=== PATIENT | male | born 1980 | race Caucasian/White ===

== ENCOUNTER 2016-11-10 22:40 | Emergency (ER) | payer MEDICAID ==
[~2016-11-10] VITALS: Ht 177.8 cm; Wt 140.5 kg
[2016-11-10 22:45] VITALS: Ht 177.8 cm; Wt 140.5 kg
[2016-11-10] MEDS ORDERED: AMOX1TAB10 PO (23:36)
[2016-11-10] MEDS ORDERED: LORA10CA PO (23:36)
[2016-11-10 23:54] VITALS: BP 161/97; PULSE 91; RESP 20; TEMP 98
--- NOTE | 2016-11-11 02:22 | ERD ---
ER Documentation Chief Complaint Date/Time DATE: 11/11/16 TIME: 02:21 Chief Complaint right ear pain x days HPI This patient is a 36-year-old male presenting to the emergency department for right ear pain for the past week which is intermittent and mild in severity currently. ROS All systems reviewed and are negative except as per history of present illness. Medications Home Meds Active Scripts Loratadine* (Claritin*) 10 Mg Capsule, 10 MG PO DAILY, #30 CAP Prov:CEM HOLDER PA-C 11/10/16 Amoxicillin/Potassium Clav (Amox-Clav 875-125 mg Tablet) 875-125 mg Tab, 1 TAB PO BID for 10 Days, #20 TAB Prov:CEM HOLDER PA-C 11/10/16 Allergies Allergies: Coded Allergies: No Known Allergy (Unverified , 11/10/16) PMhx/Soc Medical and Surgical Hx: pt denies Medical Hx, pt denies Surgical Hx Hx Alcohol Use: No Hx Substance Use: No Hx Tobacco Use: No Smoking Status: Never smoker FmHx Noncontributory for chief complaint Physical Exam Vitals Vital Signs Date Time Temp Pulse Resp B/P Pulse Ox O2 Delivery O2 Flow Rate FiO2 11/10/16 23:54 98.0 91 20 161/97 99 Room Air 11/10/16 22:45 98.5 106 20 179/87 100 Physical Exam Const: Nontoxic, well-appearing male. Head: Atraumatic Eyes: Normal Conjunctiva ENT: Normal External Ears, Nose and Mouth. There is erythema to bilateral tympanic membranes but no bulging. Neck: Full range of motion..~ No meningismus. Resp: Clear to auscultation bilaterally Cardio: Regular rate and rhythm, no murmurs Abd: Soft, non tender, non distended. Normal bowel sounds Skin: No petechiae or rashes Back: No midline or flank tenderness Ext: No cyanosis, or edema Neur: Awake and alert Psych: Normal Mood and Affect Procedures/MDM 36-year-old male presents to the emergency department with right ear pain. On exam blood pressure was elevated at 179/87. Patient's blood pressure was elevated (>120/80) but appears stable without evidence of hypertension emergency or urgency. The patient was counseled about the risks of hypertension and urged to pursue outpatient monitoring and therapy within a week with their primary care physician. History and clinical examination is concerning for bilateral otitis media. The patient is stable for outpatient management with a prescription for Augmentin and loratadine. Questions and concerns were addressed. Close follow-up with primary care physician advised. Strict ER return precautions discussed. Departure Diagnosis: Primary Impression: Otitis media Otitis media type: unspecified Laterality: bilateral Chronicity: unspecified Qualified Code: H66.93 - Bilateral otitis media, unspecified chronicity, unspecified otitis media type Condition: Fair Patient Instructions: Otitis Media, Abx Tx (Adult) Additional Instructions: No mas mejor en 2-3 [place], regresar. Mas peor en 24 horas, regresear rapidamente. Ir a doctor primario in 5-7 [place]. Usar instrucciones cuando reji medicamento. CEM HOLDER PA-C Nov 11, 2016 02:22
== END 2016-11-10 23:54 | disposition home or self-care (01) ==
LOC: FTE 22:40
DX: H66.93 Otitis media, unspecified, bilateral (principal)
CPT/HCPCS: 99283

== ENCOUNTER 2018-12-30 11:08 | Emergency (ER) | payer MEDICAID ==
[~2018-12-30] VITALS: Ht 170.2 cm; Wt 147.0 kg
[~2018-12-30 11:08] MED LIST: AMOX1TAB10 PO; LORA10CA PO; [UNRECOGNIZED DRUG - CODE] IV
[2018-12-30 11:13] VITALS: Ht 170.2 cm; Wt 147.0 kg
[2018-12-30] MEDS ORDERED: SODIUM CHLORIDE 0.9% 1L BAG IV* STA (12:27)
[2018-12-30] MEDS ORDERED: CEFEPIME 2GM/50 ML (PMX) 50 ML IVPB STA (12:27)
[2018-12-30] MEDS ORDERED: VANCOMYCIN 1 GM (PMX) 250 ML IVPB ONE (12:30)
[2018-12-30 16:09] VITALS: BP 152/78; PULSE 78; RESP 18
--- NOTE | 2018-12-30 16:21 | ERD ---
ER Documentation Chief Complaint Chief Complaint RIGHT KNEE SURGERY JULY AT [facility], ON IV ANTIOTICS X 2 WEEKS, NO IMP HPI 38-year-old gentleman who presents to the emergency room with persistent drainage from the right knee. Patient had knee surgery on August 19 of this year at [facility] by a doctor Jaswinder (esvin). The patient has now been on 2 different antibiotics for persistent infection of this knee. The patient was recently transitioned through a PICC line to oxacillin. The patient states that he had a follow-up with primary care physician several days ago who stated that they would like to see another week on his antibiotics. He does state that the redness around his knee is better but the patient is still having copious and persistent drainage from the knee itself. Patient describes moderate pain and difficulty ambulating because of the pain. He denies any fevers or chills. Patient is concerned because the persistence of symptoms therefore presents to the emergency room. ROS All systems reviewed and are negative except as per history of present illness. Medications Home Meds Reported Medications Oxacillin Sodium/Dextrose,Iso (Oxacillin 2 gm/ 50 ml Inj) 2 Gm/50 Ml Froz.piggy, 48 ML IV Q4H 12/30/18 Discontinued Scripts Loratadine* (Claritin*) 10 Mg Capsule, 10 MG PO DAILY, #30 CAP Prov:CEM HOLDER PA-C 11/10/16 Amoxicillin/Potassium Clav (Amox-Clav 875-125 mg Tablet) 875-125 mg Tab, 1 TAB PO BID for 10 Days, #20 TAB Prov:CEM HOLDER PA-C 11/10/16 Allergies Allergies: Coded Allergies: No Known Allergy (Unverified , 12/30/18) PMhx/Soc History of Surgery: Yes (RIGHT KNEE) Anesthesia Reaction: No Hx Neurological Disorder: No Hx Respiratory Disorders: No Hx Cardiac Disorders: Yes (HTN) Hx Psychiatric Problems: No Hx Miscellaneous Medical Probl: No Hx Alcohol Use: No Hx Substance Use: No Hx Tobacco Use: No Smoking Status: Never smoker FmHx Family History: No diabetes Physical Exam Vitals Vital Signs Date Temp Pulse Resp B/P (MAP) Pulse Ox O2 O2 Flow FiO2 Time Delivery Rate 12/30/18 78 18 152/78 100 Room Air 16:09 (102) 12/30/18 98.3 80 20 151/91 100 Room Air 13:21 (111) 12/30/18 98.1 89 18 178/78 99 11:13 (111) Physical Exam General: Well developed, well nourished, no acute distress Head: Normocephalic, atraumatic. Eyes: Pupils equally reactive, EOM intact ENT: Moist mucous membranes Neck: Supple, no lymphadenopathy Respiratory: Lungs clear bilaterally, no distress Cardiovascular: RRR, no murmurs, rubs, or gallops Abdominal: Soft, non-tender, non-distended, no peritoneal signs : Deferred MSK: Significant purulent drainage from the anterior portion of the right knee with limited range of motion secondary to pain and effusion. Surrounding erythema and warmth is noted to the knee. Strong pulses distally. Good capillary refill. Neurologic: Alert and oriented, moving all extremities, normal speech, no focal weakness, no cerebellar signs Skin: No rash Psych: Normal mood Result Diagram: 12/30/18 1241 12/30/18 1241 Results 24 hrs Laboratory Tests Test 12/30/18 12:41 12/30/18 12:49 White Blood Count 6.3 10^3/ul Red Blood Count 4.60 10^6/ul Hemoglobin 14.1 g/dl Hematocrit 41.5 % Mean Corpuscular Volume 90.2 fl Mean Corpuscular Hemoglobin 30.7 pg Mean Corpuscular Hemoglobin Concent 34.0 g/dl Red Cell Distribution Width 12.5 % Platelet Count 531 10^3/UL Mean Platelet Volume 9.1 fl Immature Granulocytes % 0.300 % Neutrophils % 61.5 % Lymphocytes % 29.7 % Monocytes % 6.6 % Eosinophils % 1.4 % Basophils % 0.5 % Nucleated Red Blood Cells % 0.0 /100WBC Immature Granulocytes # 0.020 10^3/ul Neutrophils # 3.9 10^3/ul Lymphocytes # 1.9 10^3/ul Monocytes # 0.4 10^3/ul Eosinophils # 0.1 10^3/ul Basophils # 0.0 10^3/ul Nucleated Red Blood Cells # 0.0 10^3/ul Erythrocyte Sedimentation Rate 53.0 mm/Hr Prothrombin Time 12.9 Sec Prothrombin Time Ratio 1.0 INR International Normalized Ratio 0.96 Activated Partial Thromboplast Time 27.6 Sec Sodium Level 140 mmol/L Potassium Level 3.8 mmol/L Chloride Level 107 mmol/L Carbon Dioxide Level 26 mmol/L Anion Gap 7 Blood Urea Nitrogen 9 mg/dl Creatinine 0.70 mg/dl Est Glomerular Filtrat Rate mL/min > 60 mL/min Glucose Level 117 mg/dl Calcium Level 9.1 mg/dl Total Bilirubin 0.3 mg/dl Direct Bilirubin 0.00 mg/dl Indirect Bilirubin 0.3 mg/dl Aspartate Amino Transf (AST/SGOT) 25 IU/L Alanine Aminotransferase (ALT/SGPT) 26 IU/L Alkaline Phosphatase 94 IU/L C-Reactive Protein 6.1 mg/dl Total Protein 7.1 g/dl Albumin 3.7 g/dl Globulin 3.40 g/dl Albumin/Globulin Ratio 1.08 POC Venous Lactate 1.0 mmol/L Current Medications Medications Dose Sig/Krista Start Time Status Last (Trade) Ordered Route PRN Stop Time Admin Dose Reason Admin Sodium 1,980 ml BOLUS OVER 2 12/30/18 DC 12/30/18 Chloride HOURS STAT 12:27 12/30/18 12:43 (NS) IV* 12:30 Cefepime HCl 50 ml @ ONCE STAT 12/30/18 DC 12/30/18 100 mls/hr IVPB 12:27 12/30/18 12:42 12:56 Vancomycin 250 ml @ ONCE ONCE 12/30/18 DC 12/30/18 HCl 125 mls/hr IVPB 12:30 12/30/18 12:43 14:29 Procedures/MDM EKG, MONITORS, & DIAGNOSTIC IMAGING: X-ray right knee: IMPRESSION: Marked soft tissue swelling in the right anterior knee with scattered air bubbles, suspicious for an infectious process. Follow-up CT with contrast is recommended. LAB INTERPRETATION: I reviewed the laboratory testing and it shows elevated ESR and CRP MEDICAL DECISION MAKING: The patient has persistent drainage from his right knee consistent with a septic arthritis that is failing outpatient IV antibiotic therapy. This is now the patient's second antibiotic and has persistent drainage that is purulent from the right knee. Patient likely requires washout of the joint. Given this is a subacute issue the patient does not likely require emergency washout but prompt evaluation is certainly necessary. I will broaden the patient's antibiotics, check laboratory testing and screen for more serious infection and bacteremia. The patient needs to likely follow-up with his surgeon at [facility]. A phone call to [facility] was placed, they do not have any beds to accept this patient. ER COURSE: * The patient's laboratory testing is reassuring but the patient's ESR and CRP are elevated as expected. * Unfortunately [facility] does not have any beds at [facility]. The patient cannot be transferred * On-call orthopedic surgeon Dr. Lopez recommends transfer to [facility]. He cannot accept the case given the patient has a subacute process and has been seen by prior surgeon. * After prolonged and multiple attempts to try and transfer this patient to admit the patient I am unsuccessful. The patient wishes to go home. He is advised that he needs prompt follow-up with his surgeon. Given the subacute nature the patient may tolerate outpatient care. He is currently receiving IV antibiotics. Return precautions were discussed and understood. The patient was advised that he absolutely needs to see his primary surgeon as soon as possible. Patient has chose to leave the emergency room rather than be transferred from the emergency room. CONSULTATION: Orthopedic surgeon as documented above DISPOSITION PLAN: The patient does not have an identifiable emergent medical condition that w arrants inpatient hospitalization at this time. The patient is deemed safe for discharge with outpatient follow-up. We discussed follow up with the patient's primary care doctor within 24 to 48 hours as needed. We also discussed return to the emergency room for worsening symptoms or worsening condition. Outpatient referral: All of you orthopedic surgeon Discharge Medications: Continue oxacillin Departure Diagnosis: Primary Impression: Septic arthritis Septic arthritis location: knee Septic arthritis organism: due to unspecified organism Laterality: right Qualified Codes: M00.9 - Pyogenic arthritis, unspecified Condition: Stable OLGA FERNANDEZ MD Dec 30, 2018 12:49
== END 2018-12-30 16:09 | disposition home or self-care (01) ==
LOC: E/R 11:08
DX: M00.9 Pyogenic arthritis, unspecified (principal); I10 Essential (primary) hypertension
CPT/HCPCS: 36415; 73562; 80053; 83605; 85025; 85610; 85651; 85730; 86140; 87040; 87070; 93005; 96374; 96375; J0692; J3370; J7030; Z7502

== ENCOUNTER 2018-12-31 21:26 | Emergency (ER) | payer MEDICAID ==
[~2018-12-31] VITALS: Ht 170.2 cm; Wt 151.9 kg
[~2018-12-31 21:26] MED LIST changes: -AMOX1TAB10 PO; -LORA10CA PO
[2018-12-31 21:28] VITALS: Ht 170.2 cm; Wt 151.9 kg
--- NOTE | 2018-12-31 22:34 | ERD ---
ER Documentation Chief Complaint Chief Complaint STATES "A MATERIAL SPILLED ON MY PICC LINE". HPI Patient is a 38 years old male who denies all past medical history currently on a PICU line for right knee infection. Patient reports that he spilled some construction cement on the PICU line and wants to make sure that it is clean. Denies any fever, chills, night sweats, discoloration around PICU line, pus drainage, pain. Patient admits that he tried washing the construction cement with water with some success. ROS All systems reviewed and are negative except as per history of present illness. Medications Home Meds Reported Medications Oxacillin Sodium/Dextrose,Iso (Oxacillin 2 gm/ 50 ml Inj) 2 Gm/50 Ml Froz.piggy, 48 ML IV Q4H 12/30/18 Discontinued Scripts Loratadine* (Claritin*) 10 Mg Capsule, 10 MG PO DAILY, #30 CAP Prov:CEM HOLDER PA-C 11/10/16 Amoxicillin/Potassium Clav (Amox-Clav 875-125 mg Tablet) 875-125 mg Tab, 1 TAB PO BID for 10 Days, #20 TAB Prov:CEM HOLDER PA-C 11/10/16 Allergies Allergies: Coded Allergies: No Known Allergy (Unverified , 12/30/18) PMhx/Soc History of Surgery: Yes (RIGHT KNEE) Anesthesia Reaction: No Hx Neurological Disorder: No Hx Respiratory Disorders: No Hx Cardiac Disorders: Yes (HTN) Hx Psychiatric Problems: No Hx Miscellaneous Medical Probl: No Hx Alcohol Use: No Hx Substance Use: No Hx Tobacco Use: No Smoking Status: Never smoker FmHx Family History: No diabetes, No coronary disease, No other Physical Exam Vitals Vital Signs Date Temp Pulse Resp B/P (MAP) Pulse Ox O2 O2 Flow FiO2 Time Delivery Rate 12/31/18 99.6 87 14 164/90 97 21:28 (114) Physical Exam Const: No acute distress Head: Atraumatic Resp: Clear to auscultation bilaterally Cardio: Regular rate and rhythm, no murmurs Psych: Normal Mood and Affect PICU Line Exam: No signs of erythema, induration, swelling, tenderness around PI CC line located at right upper extremity. Provider did not see any cement on PICU line or any other material. Procedures/MDM Patient was seen and evaluated for evaluation for possible contaminated PICC line. Patient's PICC line is intact without any obvious signs of cellulitis. Provider had nurse reevaluate the PICU line and wash the outer perimeter with al cohol. PICU line as well as flush without any complication called by new dressing application. Patient is stable ready for discharge. Follow-up with PCP. Departure Diagnosis: Primary Impression: Multiple complaints Condition: Stable Patient Instructions: Personal Hygiene Basics Referrals: [facility] Additional Instructions: Paciente aconseja volver a Departamento de urgencias inmediatamente para sntomas nuevos o que empeoran . Paciente aconseja posteriores con el PCP en 2-3 [place] . Paciente verbaliza la comprehensin y est de acuerdo con el tratamiento y el curso de accin. Si el paciente no tiene ninguna de atencin primaria pueden seguir con [facility] [address] [place] [address] o [facility] + [address] [address] SHAISTA MORA PA-C Dec 31, 2018 22:34
[2018-12-31 23:12] VITALS: BP 153/79; PULSE 79; RESP 16
== END 2018-12-31 23:17 | disposition home or self-care (01) ==
LOC: FTE 21:26
DX: Z03.89 Encounter for observation for other suspected diseases and conditions ruled out (principal); I10 Essential (primary) hypertension
CPT/HCPCS: Z7502; Z7610; 99282